=== PATIENT | female | born 1960 | race African-American/Black ===

== ENCOUNTER 2021-12-06 11:28 | Outpatient (CLI) | payer BC ==
[2021-12-06 12:33] LABS: Mean Corpuscular HGB CONC 32.1 g/dL (32.0-36.0); Mean Corpuscular Hemoglobin 31.5 pg (27.0-33.0); Mean Corpuscular Volume 98.2 fl (81.6-98.3); Mean Platelet Volume 10.2 fl (7.4-10.4); Platelet Count 278 10x3/uL (150-450); RBC Distribution Width 13.4 % (11.5-14.5); Red Blood Cell (RBC) Count 3.81 10x6/uL (3.90-5.03); White Blood Cell (WBC) Count 5.5 10x3/uL (3.5-10.5)
[2021-12-06 12:39] LABS: INR-International Normal Ratio 0.9; PTT 25.8 sec (22.0-33.0); Prothrombin Time 10.5 sec (9.5-12.1)
[2021-12-06 23:53] LABS: SARS-CoV-2 PCR by NAA Not Detected (NotDetected)
== END 2021-12-06 11:29 | disposition home or self-care (01) ==
LOC: LABBT 11:28
PROVIDERS: ATTEND Neurological Surgery
DX: Z01.818 Encounter for other preprocedural examination (principal); M48.061 Spinal stenosis, lumbar region without neurogenic claudication; M43.17 Spondylolisthesis, lumbosacral region; Z20.822 Contact with and (suspected) exposure to COVID-19
CPT/HCPCS: 85027; 85610; 85730; 93005; 93010; U0003; U0005

== ENCOUNTER 2021-12-11 05:19 | Inpatient (IN) | payer BC ==
[2021-12-03 12:27] VITALS: BMI 35.2
[2021-12-11] MEDS ORDERED: EPINEPHrine 1 MG/ML AMP ONE (06:09)
[2021-12-11] MEDS ORDERED: Thrombin 5000 UNITS/5 ML VIAL ONE (06:09)
[2021-12-11] MEDS ORDERED: Neomycin-Polymyxin 1 ML AMP ONE (06:09)
[2021-12-11] MEDS ORDERED: Bupivacaine PF 0.5% 30 ML VIAL ONE (06:09)
[2021-12-11] MEDS ORDERED: Fentanyl 250 MCG/5 ML VIAL ONE ×2 (06:31→15:43)
[2021-12-11] MEDS ORDERED: HYDROcodone/Acetaminophen 7.5/325 mg Tablet PO PRN (06:34)
[2021-12-11] MEDS ORDERED: Bisacodyl 10 MG SUPP PR PRN (06:34)
[2021-12-11] MEDS ORDERED: diphenhydrAMINE 50 MG/ML VIAL IVP PRN (06:34)
[2021-12-11] MEDS ORDERED: Ondansetron PF 4 MG/2 ML Vial IVP PRN (06:34)
[2021-12-11] MEDS ORDERED: Prochlorperazine 10 MG/2 ML VIAL IM PRN (06:34)
[2021-12-11] MEDS ORDERED: Mag-Al 1200 mg/1200 mg/30 ML UDCUP PO PRN (06:34)
[2021-12-11] MEDS ORDERED: Acetaminophen 500 MG TAB ONE (06:45)
[2021-12-11] MEDS ORDERED: Midazolam HCl 2 mg/2 ml Vial ONE (06:45)
[2021-12-11] MEDS ORDERED: Dexmedetomidine 200 MCG/2 ML VIAL ONE (06:48)
[2021-12-11] MEDS ORDERED: Ketamine 50 MG/ML (10ML VIAL) ONE (06:48)
[2021-12-11] MEDS ORDERED: ceFAZolin 2 GM/Dextrose 50 ML IVPB ONE (06:49)
[2021-12-11] MEDS ORDERED: PHENYLEPHRINE-NS 100 MCG/ML 10 ML SYRINGE ONE (07:00)
[2021-12-11] MEDS ORDERED: ePHEDrine 50 MG/ML VIAL ONE (07:00)
[2021-12-11] MEDS ORDERED: Metoclopramide HCl 10 MG/2 ML VIAL ONE (07:00)
[2021-12-11] MEDS ORDERED: Ketorolac Tromethamine 30 MG/ML VIAL ONE ×2 (07:00→15:23)
[2021-12-11] MEDS ORDERED: PROPOFOL 200 MG/20 ML VIAL ONE (07:00)
[2021-12-11] MEDS ORDERED: Ondansetron PF 4 MG/2 ML Vial ONE (07:00)
[2021-12-11] MEDS ORDERED: Vecuronium 10 MG VIAL ONE (07:00)
[2021-12-11] MEDS ORDERED: Lidocaine 2% PF 5 ML VIAL ONE (07:00)
[2021-12-11] MEDS ORDERED: Rocuronium Bromide 10 MG/ML (10ML VIAL) ONE (07:00)
[2021-12-11] MEDS ORDERED: ePHEDrine Sulfate 50 MG/10 ML VIAL ONE (08:58)
[2021-12-11] MEDS ORDERED: Albumin 5% 500 ML ONE (09:08)
[2021-12-11] MEDS ORDERED: SUGAMMADEX SODIUM 200 MG/2 ML VIAL ONE (14:46)
[2021-12-11] MEDS ORDERED: HYDROmorphone 0.5 MG/0.5 ML SYRINGE ONE (15:23)
[2021-12-11] MEDS: Amlodipine 5 MG TAB PO SCH (16:20)
[2021-12-11] MEDS: Gabapentin 300 MG CAP PO SCH ×3 (16:20→20:16)
[2021-12-11] MEDS: Sodium Chloride 0.9% 1,000 ML IV SCH ×2 (16:20→18:40)
[2021-12-11] MEDS: ceFAZolin 2 GM/Dextrose 50 ML 2 GM in Premix Bag 1 BAG IVPB SCH ×2 (17:10→21:55)
[2021-12-11] MEDS: Morphine 4 MG/ML VIAL SLOW IVP PRN ×3 (17:11→23:09)
[2021-12-11] MEDS: HYDROcodone/Acetaminophen 10/325 mg Tablet PO PRN ×2 (18:12→21:54)
[2021-12-11] MEDS: Cyclobenzaprine 10 MG TAB PO PRN (20:15)
[2021-12-12] MEDS: HYDROcodone/Acetaminophen 10/325 mg Tablet PO PRN ×3 (03:57→17:25)
[2021-12-12] MEDS: Morphine 4 MG/ML VIAL SLOW IVP PRN ×3 (06:02→11:47)
[2021-12-12] MEDS: Gabapentin 300 MG CAP PO SCH ×3 (07:39→21:11)
[2021-12-12] MEDS: Cyclobenzaprine 10 MG TAB PO PRN (07:39)
[2021-12-12] MEDS: Sodium Chloride 0.9% 1,000 ML IV SCH ×2 (07:40→23:54)
[2021-12-12] MEDS: Acetaminophen 325 MG TAB PO PRN ×4 (08:35→23:50)
[2021-12-12] MEDS: Acetaminophen/Codeine 30-300mg Tablet PO PRN ×2 (10:30→23:51)
[2021-12-12] MEDS: Amlodipine 5 MG TAB PO SCH (10:47)
[2021-12-12 15:39] LABS: #Eosinphils 0.1 thou/uL (0.0-0.7); #Lymphocytes 1.2 thou/uL (1.20-3.40); #Monocytes 0.9 thou/uL (0.11-0.59); #Neutrophils 4.6 thou/uL (1.40-6.50); %Basophils 0.1 % (0.0-1.0); %Eosinophils 0.8 % (0.0-10.0); %Monocytes 13.2 % (0.0-10.0); %Neutrophils 67.9 % (42.0-75.0); Hemoglobin 7.8 g/dL (12.0-16.0); Mean Corpuscular HGB CONC 33.7 g/dL (32.0-36.0); Mean Corpuscular Hemoglobin 34.4 pg (27.0-31.0); Mean Platelet Volume 7.5 fL (7.4-10.4); Platelet Count 158 thou/uL (130-400); RBC Distribution Width 12.4 % (11.5-14.5); Red Blood Cell (RBC) Count 2.26 mill/uL (4.20-5.40); White Blood Cell (WBC) Count 6.7 thou/uL (4.8-10.8)
[2021-12-12] MEDS: Milk Of Magnesia 30 ML UDCUP PO PRN (17:24)
[2021-12-12 18:22] LABS: Bacteria/HPF None Seen HPF (None Seen); Bilirubin Negative (Negative); Blood, Urine Negative (Negative); Clarity Clear (Clear); Glucose, Urine (Dipstick) Normal (Negative); Ketone, Urine Negative (Negative); Leukocyte Negative Leu/uL (Negative); Nitrite Negative (Negative); Protein, Urine (Dipstick) Negative (Neg-Trace); RBC/HPF None Seen HPF (0-3); Specific Gravity, Urine 1.009 (1.002-1.036); Squamous Epithelial 0-3 HPF (0-3); Urobilinogen Normal mg/dL (Less than 2); WBC/HPF 0-3 HPF (0-3); pH, Urine 5.5 (5.0-9.0)
[2021-12-12 18:23] LABS: Urine Culture Reflex No No
[2021-12-13] MEDS: Sodium Chloride 0.9% 1,000 ML IV SCH ×2 (02:27→17:15)
[2021-12-13] MEDS: Cyclobenzaprine 10 MG TAB PO PRN ×2 (05:14→14:31)
[2021-12-13] MEDS: HYDROcodone/Acetaminophen 10/325 mg Tablet PO PRN (05:15)
[2021-12-13] MEDS ORDERED: traMADol HCl 50 MG TAB PO PRN (08:14)
[2021-12-13] MEDS: Gabapentin 300 MG CAP PO SCH ×3 (08:47→19:44)
[2021-12-13] MEDS: traMADol HCl 50 MG TAB PO PRN ×3 (08:47→19:44)
[2021-12-13] MEDS: Amlodipine 5 MG TAB PO SCH (10:35)
[2021-12-13] MEDS: Acetaminophen 325 MG TAB PO PRN ×2 (10:37→19:43)
[2021-12-14] MEDS: Sodium Chloride 0.9% 1,000 ML IV SCH ×2 (01:35→16:12)
[2021-12-14] MEDS: traMADol HCl 50 MG TAB PO PRN (03:16)
[2021-12-14] MEDS: Acetaminophen 325 MG TAB PO PRN ×2 (03:48→12:53)
[2021-12-14] MEDS: Gabapentin 300 MG CAP PO SCH ×3 (10:04→21:21)
[2021-12-14] MEDS: Amlodipine 5 MG TAB PO SCH (10:05)
[2021-12-14] MEDS: Cyclobenzaprine 10 MG TAB PO PRN (10:05)
[2021-12-14 11:09] LABS: #Eosinphils 0.1 thou/uL (0.0-0.7); #Lymphocytes 1.6 thou/uL (1.20-3.40); #Monocytes 0.9 thou/uL (0.11-0.59); #Neutrophils 4.8 thou/uL (1.40-6.50); %Eosinophils 1.8 % (0.0-10.0); %Lymphocytes 21.9 % (21.0-51.0); %Monocytes 11.5 % (0.0-10.0); %Neutrophils 64.7 % (42.0-75.0); Hemoglobin 9.4 g/dL (12.0-16.0); Mean Corpuscular HGB CONC 34.4 g/dL (32.0-36.0); Mean Corpuscular Hemoglobin 33.1 pg (27.0-31.0); Mean Corpuscular Volume 96.3 fL (78.0-98.0); Mean Platelet Volume 7.8 fL (7.4-10.4); Platelet Count 133 thou/uL (130-400); RBC Distribution Width 17.9 % (11.5-14.5); Red Blood Cell (RBC) Count 2.84 mill/uL (4.20-5.40); White Blood Cell (WBC) Count 7.5 thou/uL (4.8-10.8)
[2021-12-14 11:27] LABS: ALT (SGPT) 25 U/L (8-55); AST (SGOT) 30 U/L (5-34); Albumin 3.2 g/dL (3.5-5.0); Alkaline Phosphatase 70 U/L (40-110); Anion Gap 10 mmol/L (10-20); BUN (Urea Nitrogen) 8 mg/dL (9.8-20.1); Bilirubin, Total 0.4 mg/dL (0.2-1.2); Calc. Creatinine Clearance 123 mL/min (70-130); Calcium 8.6 mg/dL (7.8-10.44); Carbon Dioxide 27 mmol/L (22-29); Chloride 104 mmol/L (98-107); Globulin 2.6 g/dL (2.4-3.5); Glucose 98 mg/dL (70-105); Protein, Total 5.8 g/dL (6.0-8.3); Sodium 137 mmol/L (136-145)
[2021-12-14] MEDS: Acetaminophen/Codeine 30-300mg Tablet PO PRN (12:54)
[2021-12-14 16:32] LABS: Bilirubin Negative (Negative); Blood, Urine Negative (Negative); Clarity Clear (Clear); Glucose, Urine (Dipstick) Normal (Negative); Ketone, Urine Negative (Negative); Leukocyte Negative Leu/uL (Negative); Nitrite Negative (Negative); Protein, Urine (Dipstick) Negative (Neg-Trace); RBC/HPF 0-3 HPF (0-3); Specific Gravity, Urine 1.012 (1.002-1.036); Squamous Epithelial 0-3 HPF (0-3); Urobilinogen Normal mg/dL (Less than 2)
[2021-12-14 16:44] LABS: Bacteria/HPF 1+ HPF (None Seen)
[2021-12-14 16:45] LABS: Urine Culture Reflex Yes Yes
[2021-12-14] MEDS: Morphine 4 MG/ML VIAL SLOW IVP PRN (16:53)
[2021-12-14 19:38] LABS: Free T4 (Free Thyroxine) 1.2 ng/dL (0.70-1.48)
[2021-12-15] MEDS: Acetaminophen/Codeine 30-300mg Tablet PO PRN ×4 (00:01→17:15)
[2021-12-15] MEDS: Sodium Chloride 0.9% 1,000 ML IV SCH ×2 (05:44→14:30)
[2021-12-15] MEDS: Amlodipine 5 MG TAB PO SCH (08:36)
[2021-12-15] MEDS: Gabapentin 300 MG CAP PO SCH ×3 (08:36→20:53)
[2021-12-15] MEDS: Cyclobenzaprine 10 MG TAB PO PRN (08:39)
[2021-12-15] MEDS: cefTRIAXone\\ROCEPHIN 1 GM in Sodium Chloride 0.9% 100 ML IVPB SCH (17:14)
[2021-12-15] MEDS: Acetaminophen 325 MG TAB PO PRN (20:52)
[2021-12-15] MEDS: Famotidine 20 MG TAB PO SCH (20:53)
[2021-12-15] MEDS: Morphine 4 MG/ML VIAL SLOW IVP PRN (20:53)
[2021-12-16] MEDS: Sodium Chloride 0.9% 1,000 ML IV SCH (07:12)
[2021-12-16] MEDS: Famotidine 20 MG TAB PO SCH ×2 (08:12→20:24)
[2021-12-16] MEDS: Gabapentin 300 MG CAP PO SCH ×3 (08:12→20:23)
[2021-12-16] MEDS: Cyclobenzaprine 10 MG TAB PO PRN (08:13)
[2021-12-16] MEDS: Acetaminophen/Codeine 30-300mg Tablet PO PRN ×3 (08:13→20:24)
[2021-12-16] MEDS: Amlodipine 5 MG TAB PO SCH (08:13)
[2021-12-16] MEDS: cefTRIAXone\\ROCEPHIN 1 GM in Sodium Chloride 0.9% 100 ML IVPB SCH (17:05)
[2021-12-17] MEDS: Acetaminophen/Codeine 30-300mg Tablet PO PRN ×4 (02:43→20:25)
[2021-12-17] MEDS: Milk Of Magnesia 30 ML UDCUP PO PRN (08:39)
[2021-12-17] MEDS: Gabapentin 300 MG CAP PO SCH ×3 (08:43→20:24)
[2021-12-17] MEDS: Cefdinir 300 MG CAP PO SCH (08:43)
[2021-12-17] MEDS: Famotidine 20 MG TAB PO SCH ×2 (08:44→20:24)
[2021-12-17] MEDS: Amlodipine 5 MG TAB PO SCH (08:44)
[2021-12-17] MEDS: Atenolol 25 MG TAB PO SCH ×2 (14:32→14:33)
[2021-12-17] MEDS: Cyclobenzaprine 10 MG TAB PO PRN (20:36)
[2021-12-18] MEDS: Acetaminophen/Codeine 30-300mg Tablet PO PRN ×3 (02:02→15:39)
[2021-12-18] MEDS ORDERED: Acetaminophen/Codeine 30-300mg Tablet PO PRN (06:20)
[2021-12-18] MEDS: Cefdinir 300 MG CAP PO SCH (08:14)
[2021-12-18] MEDS: Gabapentin 300 MG CAP PO SCH ×2 (08:14→15:37)
[2021-12-18] MEDS: Famotidine 20 MG TAB PO SCH (08:15)
[2021-12-18] MEDS: Amlodipine 5 MG TAB PO SCH (08:15)
[2021-12-18] MEDS: Atenolol 25 MG TAB PO SCH (11:55)
[2021-12-18] MEDS: Cyclobenzaprine 10 MG TAB PO PRN (12:27)
[2021-12-18 17:37] VITALS: BP 127/76; TEMP 98.4
== END 2021-12-18 19:20 | DRG 454 ==
LOC: SDC 05:19 → SURG A 06:38 → OBSVTOIN 12-13 17:17
PROVIDERS: ADMIT Neurological Surgery; ATTEND Neurological Surgery
PROC: 0SG00AJ Fusion of Lumbar Vertebral Joint with Interbody Fusion Device, Posterior Approach, Anterior Column, Open Approach (ICD-10-PCS; principal; 2021-12-11)
PROC: 0SG0071 Fusion of Lumbar Vertebral Joint with Autologous Tissue Substitute, Posterior Approach, Posterior Column, Open Approach (ICD-10-PCS; 2021-12-11)
PROC: 0SG30AJ Fusion of Lumbosacral Joint with Interbody Fusion Device, Posterior Approach, Anterior Column, Open Approach (ICD-10-PCS; 2021-12-11)
PROC: 0SG3071 Fusion of Lumbosacral Joint with Autologous Tissue Substitute, Posterior Approach, Posterior Column, Open Approach (ICD-10-PCS; 2021-12-11)
PROC: 0SB20ZZ Excision of Lumbar Vertebral Disc, Open Approach (ICD-10-PCS; 2021-12-11)
PROC: 0SB40ZZ Excision of Lumbosacral Disc, Open Approach (ICD-10-PCS; 2021-12-11)
PROC: 01NB0ZZ Release Lumbar Nerve, Open Approach (ICD-10-PCS; 2021-12-11)
PROC: 01NR0ZZ Release Sacral Nerve, Open Approach (ICD-10-PCS; 2021-12-11)
PROC: 30233N1 Transfusion of Nonautologous Red Blood Cells into Peripheral Vein, Percutaneous Approach (ICD-10-PCS; 2021-12-13)
DX: M48.062 Spinal stenosis, lumbar region with neurogenic claudication (principal); N39.0 Urinary tract infection, site not specified; M54.16 Radiculopathy, lumbar region; M43.17 Spondylolisthesis, lumbosacral region; M43.16 Spondylolisthesis, lumbar region; F41.9 Anxiety disorder, unspecified; M19.90 Unspecified osteoarthritis, unspecified site; F32.A Depression, unspecified; G89.29 Other chronic pain; I10 Essential (primary) hypertension; K21.9 Gastro-esophageal reflux disease without esophagitis; D64.89 Other specified anemias; Z98.890 Other specified postprocedural states; Z79.899 Other long term (current) drug therapy; Z82.49 Family history of ischemic heart disease and other diseases of the circulatory system
CPT/HCPCS: 36415; 36430; 71045; 76000; 80053; 81001; 84439; 84443; 84481; 85025; 86850; 86900; 86901; 87040; 87086; 93970; 96374; 96375; 96376; C1713; C1768; C1776; G0378; J0171; J0690; J0696; J1170; J1885; J2001; J2250; J2270; J2405; J2704; J2765; J3010; J3370; J3490; J7050; L0639; P9016; P9045; S0020